=== PATIENT | male | born 1945 | race Caucasian/White ===

== ENCOUNTER 2018-04-16 15:50 | Emergency (ER) | payer OTHER, BC ==
--- NOTE | 2018-04-16 16:29 | EDPHY ---
H & P Time Seen by Provider: 04/16/18 16:29 HPI/ROS: CHIEF COMPLAINT: Right inguinal hernia,"I think it's incarcerated HISTORY OF PRESENT ILLNESS: Patient has had intermittent symptoms for about 3 years. He got sick last night had multiple episodes of vomiting, his hernia is usually been in soft and able to be easily reduced but since 10:00 a.m. He can' t get it reduced any has increasing pain and swelling. No further vomiting, no abdominal distension, no fever or chills. Symptoms moderate now. Worse with palpation. REVIEW OF SYSTEMS: Eye: no change in vision ENT: no sore throat Cardiac: no chest pain or syncope Pulmonary: no cough or SOB Abdomen: HPI Musculoskeletal: no back pain Skin: no rash Neuro: no headache Constitutional: no fever : no urinary symptoms A comprehensive 10 point review of systems is otherwise negative aside from elements mentioned in the history of present illness. PAST MEDICAL HISTORY: Anxiety, and inguinal hernia Social history: Drove himself here General Appearance: Alert and conversant, cooperative. Moderately uncomfortable. Eyes: No scleral icterus. ENT, Mouth: Normal mucous membranes. Respiratory: Normal respiratory effort, breath sounds equal, lungs are clear to auscultation. Cardiovascular: Regular rate and rhythm. Gastrointestinal: Abdomen is soft and non tender. No rebound or guarding. He has a right inguinal hernia which is not hard or firm but is very tender to palpation. Otherwise normal scrotum. Neurological: Alert, face symmetric, normal motor and sensory in extremities. Ambulatory. Skin: Warm and dry, no rashes. Musculoskeletal: No peripheral edema. Psychiatric: Not agitated. Emergency Department course/MDM: Patient had ice pack placed, I put him in Trendelenburg, I spent 10 min trying to manually reduce it without success. Fentanyl 100 mcg IV, Zofran 4 mg IV, consultation with Dr. Edwards at 4:48 p.m.. Grace able to reduce the hernia, recommends discharge with follow-up Dr. Sandoval in the office. Smoking Status: Never smoked Constitutional: Initial Vital Signs Temperature (C) 36.8 C 04/16/18 15:59 Heart Rate 84 04/16/18 15:59 Respiratory Rate 18 04/16/18 15:59 Blood Pressure 151/91 H 04/16/18 15:59 O2 Sat (%) 99 04/16/18 15:59 O2 Delivery Mode Room Air Allergies/Adverse Reactions: No Known Allergies Allergy (Unverified 04/16/18 15:59) Home Medications: Medication Instructions Recorded NK [No Known Home Meds] 04/16/18 Medical Decision Making Differential Diagnosis: Differential considered including but not limited to scrotal mass, incarcerated hernia, strangulated hernia, bowel obstruction, appendicitis. - Data Points Medications Given: Discontinued Medications Fentanyl (Sublimaze) 100 mcg IVP EDNOW ONE Stop: 04/16/18 16:47 Last Admin: 04/16/18 16:51 Dose: 100 mcg Sodium Chloride (Ns) 1,000 mls @ 0 mls/hr IV EDNOW ONE; Wide Open PRN Reason: Protocol Stop: 04/16/18 16:48 Last Admin: 04/16/18 16:53 Dose: 1,000 mls Ondansetron HCl (Zofran) 4 mg IVP EDNOW ONE Stop: 04/16/18 16:47 Last Admin: 04/16/18 16:53 Dose: 4 mg Departure - Departure Disposition: Home, Routine, Self-Care Clinical Impression: Right inguinal hernia Condition: Good Instructions: Inguinal Hernia (ED) Referrals: Toy Carter MD [Primary Care Provider] - As per Instructions Abhishek Sandoval MD [Medical Doctor] - As per Instructions (call Dr. Sandoval to followup within the next week to discuss definitive surgical management)
[2018-04-16] MEDS ORDERED: fentaNYL 100 MCG/2 ML INJ IVP ONE (16:46)
[2018-04-16] MEDS ORDERED: ONDANSETRON 4 MG/2 ML VIAL IVP ONE (16:46)
[2018-04-16] MEDS ORDERED: NS 1,000 ML IV ONE (16:47)
[2018-04-16 18:36] VITALS: BP 163/80
== END 2018-04-16 18:37 | disposition home or self-care (01) ==
DX: K40.90 Unilateral inguinal hernia, without obstruction or gangrene, not specified as recurrent (principal); E86.9 Volume depletion, unspecified
CPT/HCPCS: 96361; 96374; 96375; 99284; J2405; J3010

== ENCOUNTER 2018-05-02 09:32 | Observation (INO) | payer OTHER, BC ==
--- NOTE | 2018-05-02 09:21 | PDANEPAE ---
ANE Past Medical History - Cardiovascular History Hx Hypertension: No Hx Arrhythmias: No Hx Chest Pain: No Hx Coronary Artery / Peripheral Vascular Disease: No Hx CHF / Valvular Disease: No Hx Palpitations: No - Pulmonary History Hx COPD: No Hx Asthma/Reactive Airway Disease: Yes Hx Recent Upper Respiratory Infection: No Hx Oxygen in Use at Home: No Hx Sleep Apnea: No Sleep Apnea Screening Result - Last Documented: Negative Pulmonary History Comment: ASTHMA CHILD- NO ISSUES CURRENTLY - Neurologic History Hx Cerebrovascular Accident: No Hx Seizures: No Hx Dementia: No - Endocrine History Hx Diabetes: No Hypothyroid: No Hyperthyroid: No Obesity: no - Renal History Hx Renal Disorders: Yes Renal History Comment: BPH. DIFFICULTY URINATING AT TIMES - Neurological & Psychiatric Hx Hx Neurological and Psychiatric Disorders: Yes Neurological / Psychiatric History Comment: ANXIETY. DEPRESSION WHEN HE WAS YOUNGER. INSOMNIA - Cancer History Hx Cancer: Yes Cancer History Comment: SKIN CA - Congenital Disorder History Hx Congenital Disorders: No - GI History GERD: no Hx Gastrointestinal Disorders: No - Other Health History Other Health History: WEARS GLASSES - Chronic Pain History Chronic Pain: No - Surgical History Prior Surgeries: TONSILLECTOMY CHILD. REMOVAL OF 3RD TOOTH CHILD ANE Review of Systems Review of Systems: - Exercise capacity Exercise capacity: >=4 METS METS (RN): 4 METS ANE Patient History - Allergies Allergies/Adverse Reactions: No Known Allergies Allergy (Verified 04/30/18 16:48) - Home Medications Home Medications: NK [No Known Home Meds] 04/16/18 [Last Taken Unknown] - Anes Hx Anes Hx: no prior problems - Smoking Hx Smoking Status: Never smoked Marijuana use: No - Alcohol Use Alcohol Use: Rarely - Family Anes Hx Family Anes Hx: neg - N/A Family Hx Anesthesia Complications: NONE ANE Labs/Vital Signs - Vital Signs Height: 180.34 cm Weight: 61.235 kg ANE Physical Exam - Airway Neck exam: FROM Mallampati Score: Class 1 Mouth exam: normal dental/mouth exam - Pulmonary Pulmonary: no respiratory distress, no rales or rhonchi, clear to auscultation - Cardiovascular Cardiovascular: regular rate and rhythym, no murmur, rub, or gallop - ASA Status ASA Status: II ANE Anesthesia Plan Anesthesia Plan: general endotracheal anesthesia Total IV Anesthesia: No
[2018-05-02] MEDS ORDERED: BUPIVACAINE/EPI 0.5% 30 ML SDV ONE (09:34)
[2018-05-02] MEDS ORDERED: LR 1,000 ML IV ONE (10:00)
[2018-05-02] MEDS ORDERED: ceFAZolin 2 GM/DEXTROSE 100 ML IV ONE (10:00)
[2018-05-02] MEDS ORDERED: LIDOCAINE 1% 2 ML INJ ID PRN (10:00)
--- NOTE | 2018-05-02 10:20 | PDHPUP ---
History & Physical Update H&P update statement: This history and physical update is based on an assessment of the patient which was completed after admission or registration (within 24 hours), but prior to the surgery/procedure. H&P update: H&P reviewed & patient examined, no change in patient's condition since H&P completed
[2018-05-02] MEDS ORDERED: MIDAZOLAM 2 MG/2 ML VIAL ONE (10:50)
[2018-05-02] MEDS ORDERED: PROPOFOL 200 MG/20 ML VIAL ONE (10:56)
[2018-05-02] MEDS ORDERED: REMIFENTANIL HCL 1 MG VIAL ONE (10:56)
[2018-05-02] MEDS ORDERED: PROPOFOL/EMULSION 500 MG/50 ML BOTTLE IV ONE (10:56)
[2018-05-02] MEDS ORDERED: fentaNYL 100 MCG/2 ML INJ ONE (10:56)
[2018-05-02] MEDS ORDERED: LIDOCAINE 2% 5 ML SDV ONE (10:57)
[2018-05-02] MEDS ORDERED: DEXAMETHASONE 4 MG/ML VIAL ONE (10:57)
[2018-05-02] MEDS ORDERED: ONDANSETRON 4 MG/2 ML VIAL ONE (10:57)
[2018-05-02] MEDS ORDERED: ROCURONIUM 50 MG/5 ML VIAL ONE (10:57)
[2018-05-02] MEDS ORDERED: MIDAZOLAM 2 MG/2 ML VIAL IVP ONE (11:34)
[2018-05-02] MEDS ORDERED: PROMETHAZINE HCL 25 MG/ML INJ IVP PRN (11:35)
[2018-05-02] MEDS ORDERED: ACETAMINOPHEN 500 MG TAB PO PRN (11:35)
[2018-05-02] MEDS ORDERED: fentaNYL 100 MCG/2 ML INJ IVP PRN (11:35)
[2018-05-02] MEDS ORDERED: LR 500 ML IV PRN (11:35)
[2018-05-02] MEDS ORDERED: HYDROCODONE/APAP 5/325 TAB PO PRN (11:35)
[2018-05-02] MEDS ORDERED: NALOXONE HCL 0.4 MG/ML INJ IVP PRN (11:35)
[2018-05-02] MEDS ORDERED: ONDANSETRON 4 MG/2 ML VIAL IVP PRN ×2 (11:35→13:08)
[2018-05-02] MEDS ORDERED: PHENYLEPHRINE HCL 100 MCG/ML SYR IVP PRN (11:35)
[2018-05-02] MEDS ORDERED: oxyCODONE IR 5 MG TAB PO PRN ×2 (11:35→13:08)
[2018-05-02] MEDS ORDERED: KETOROLAC 30 MG/1 ML SDV ONE (12:36)
[2018-05-02] MEDS ORDERED: NEOSTIGMINE METHYLSULFATE 5 MG/5 ML SYR ONE (12:36)
[2018-05-02] MEDS ORDERED: GLYCOPYRROLATE 0.2 MG/1 ML VIAL ONE ×2 (12:36)
--- NOTE | 2018-05-02 13:07 | POSTOPPROG ---
Post Op Note Date of Operation: 05/02/18 Surgeon: Abhishek Sandoval [employer] Engineer: JARRED Yousif Anesthesiologist: Jeannine Anesthesia: GET(General Endotracheal) Pre-op Diagnosis: bilateral inguinal hernias Post-op Diagnosis: same Procedure: Robotic assisted BIH c mesh Findings: large R direct, mod L indirect, direct and femoral hernias Inf/Abcess present in the surg proc area at time of surgery?: No EBL: Minimal
[2018-05-02] MEDS ORDERED: ACETAMINOPHEN 325 MG TAB PO PRN (13:08)
[2018-05-02] MEDS ORDERED: HYDROmorphONE/DILAUDID 1 MG/ML INJ IVP PRN (13:08)
[2018-05-02] MEDS ORDERED: LABETALOL HCL 5 MG/ML 20 ML MDV ONE (13:36)
[2018-05-02] MEDS ORDERED: LABETALOL HCL 5 MG/ML 20 ML MDV IVP ONE (14:00)
--- NOTE | 2018-05-02 14:34 | GOP ---
DATE OF OPERATION: 05/02/2018 SURGEON: Abhishek Sandoval MD [employer] DIRECTOR: Randi Doyle CFA. ANESTHESIA: General endotracheal. ANESTHESIOLOGIST: Dr. Paez. PREOPERATIVE DIAGNOSIS: Bilateral inguinal hernias. POSTOPERATIVE DIAGNOSIS: Right-sided indirect hernia and left-sided indirect, direct, and femoral he rnias. PROCEDURE PERFORMED: Robotic assisted laparoscopic bilateral inguinal hernia repair with mesh. FINDINGS: Large direct hernia on the right side. Moderate-sized indirect, direct, and femoral herni as on the left side. Both repaired with Bard 3D Light large-size mesh. SPECIMENS: None. ESTIMATED BLOOD LOSS: 5 cc. DESCRIPTION OF PROCEDURE: The patient was greeted in the preoperative suite. Once again, risks, camila efits, and alternatives were discussed. Consent was signed. He was brought back to the operative logan ite, placed on the OR table in supine position. After all anesthesia machines including SCDs were on and functioning, a World Health Organization time-out was performed. After successful induction of general anesthesia, the patient's abdomen was prepped and draped in typical sterile fashion. I comme nced the procedure by making a supraumbilical cutdown through which the Veress needle was passed. I achieved pneumoperitoneum to 15 mmHg, which was well tolerated by the patient. I then inserted an 8 mm trocar through this site. Once successfully in the abdomen I placed 2 additional 8 mm trocars, 1 in the right and 1 in the left upper quadrant, both under direct visualization. The patient was then placed in gentle Trendelenburg position and the robot was docked. I turned my attention first towar d the patient's right side. I scored a peritoneal flap adjacent to the ASIS and carried this just me dial to the pubic tubercle. I then carried this flap down to Syed's ligament medially and the visc eral sac laterally. I skeletonized the cord structures. There was no indirect defect. There was a large size direct defect. This was successfully reduced. After successful reduction I interrogated the indirect and femoral spaces and found no other significant findings. A piece of Bard 3D Light la rge-size mesh was then brought into the operative field. It was tacked to Syed's ligament as well as medially on the tissue around the defect. Once successfully tacked the peritoneum was then run wi th a running 2 0 V-Loc suture. In the same fashion, I turned my attention toward the left side. A p eritoneal flap was created in the same fashion on this side. However, the patient not only had a dir ect defect, but an indirect and a small femoral defect. All of these were successfully reduced. The cord structures were skeletonized all the way down to the visceral sac. Once no other significant f indings were identified, a left-side piece of Bard 3D Light mesh was brought into the field. It was attached to Syed's ligament as well as the medial portion of the direct defect and allowed to lay i n the preperitoneal space without any kinks. The peritoneal was closed in the same fashion. I then inspected the abdomen and found no other significant findings. I evacuated pneumoperitoneum. I clos ed the port sites with Monocryl, over which Dermabond was placed. The patient was then extubated in the operative suite and taken to the PACU in satisfactory condition. DRAINS: None. COUNTS: All counts were reported as correct x2. /[id number]/MODL
[2018-05-02] MEDS: D5W 1/2 NS W/ 20 KCl/L 1,000 ML IV SCH (15:02)
[2018-05-02] MEDS: IBUPROFEN 600 MG TAB PO SCH ×2 (15:13→21:13)
--- NOTE | 2018-05-02 16:21 | POSTANESTH ---
Post Anesthetic Evaluation Cardiovascular Status: Tx Hyper/Hypo-tension Respiratory Status: Normal, Stable Level of Consciousness/Mental Status: Can Participate in Eval Pain Control: Adequate, Prn Tx Ordered Nausea/Vomiting Control: Adequate, Prn Tx Ordered Complications Possibly Related to Anesthesia: None Noted
[2018-05-03] MEDS: D5W 1/2 NS W/ 20 KCl/L 1,000 ML IV SCH (03:07)
[2018-05-03] MEDS: IBUPROFEN 600 MG TAB PO SCH ×2 (05:31→13:50)
[2018-05-03 07:39] VITALS: BP 119/62
--- NOTE | 2018-05-03 13:01 | SOAPPROG ---
SOAP Progress Note Assessment/Plan: Assessment: DOING WELL STATUS POST LAP HERNIA REPAIR/INCISIONS CLEAN DRY AND INTACT/AFEBRILE /VOIDING WELL/POSITIVE FLATUS/EATING OKAY Plan: HOME TODAY/FOLLOW-UP WITH DR. VALENCIA VII TO 10 DAYS 05/03/18 12:59 Objective: Vital Signs Temp Pulse Resp BP Pulse Ox 37.0 C 60 14 119/62 96 05/03/18 07:37 05/03/18 07:37 05/03/18 07:37 05/03/18 07:37 05/03/18 07:37 05/02/18 05/03/18 05/04/18 05:59 05:59 05:59 Intake Total 3575 Output Total 785 350 Balance 2790 -350 ICD10 Worksheet Patient Problems: Problems Problem Status Onset Inguinal hernia Acute - ICD10 Problem Qualifiers (1) Inguinal hernia
--- NOTE | 2018-05-03 14:26 | ASMTLACE ---
CHUYITA Length of stay for Answers: 1 day current admission Acuity / Level of Answers: No Care: Did the patient have an inpatient admission? Comorbidities - select Answers: Other Notes: Inguinal hernias all that apply # of Emergency department Answers: 1-2 visits in the last 6 months Social determinants Answers: Mental health diagnosis (anxiety, depression, pers onality disorders, etc.) Score: 6 Date Signed: 05/03/2018 02:26 PM Electronically Signed By:Ivon Rivera RN
--- NOTE | 2018-05-03 15:26 | ASDISCHSUM ---
Discharge Information Plan Status:Home with No Needs Medically Cleared to Leave:05/03/2018 Discharge Date:05/03/2018 02:10 PM CM D/C Disposition:Home, Routine, Self-Care ADT D/C Disposition:Home, Routine, Self-Care Projected Discharge Date:05/03/2018 02:10 PM Transportation at D/C:Friend Discharge Delay Reason: Follow-Up Date:05/03/2018 02:10 PM Discharge Slot:2 - 12:01 pm - 18:00 pm Final Diagnosis:Bilateral inguinal hernias, s/p laproscopic hernia repairs, anxiety Placement Information Patient Contact Information Contact Name:BRISA Relationship:Friend Address:[address] City:[place] Alternate Phone: State/Zip Code:[place] [address] Email: Financial Information Financial Class:Medicare Primary Plan Desc:MEDICARE OUTPATIENT Primary Plan Number:[id number] Secondary Plan Desc: OUT OF STATE [facility] Secondary Plan Number:[id number] Assessment Information LACE LACE Length of stay for Answers: 1 day current admission Acuity / Level of Answers: No Care: Did the patient have an inpatient admission? Comorbidities - select Answers: Other Notes: Inguinal hernias all that apply # of Emergency department Answers: 1-2 visits in the last 6 months Social determinants Answers: Mental health diagnosis (anxiety, depression, pers onality disorders, etc.) Score: 6 Date Signed: 05/03/2018 02:26 PM Electronically Signed By:Ivon Rivera RN CELESTE LOVELACE Progress Note CM Note CM Note Notes: Reviewed chart. Pt presented to the Emergency Department for a possible incarcerated hernia with c/o nausea, vomiting and pain. Pt is s/p a laproscopic hernia repair. History includes bilateral inguinal hernias, anxiety. Pt lives alone in [place]. Asked to see pt by DARIA Grant for assistance with pt's anxiety. Met with pt to discuss needs. Pt reports "ongoing generalized anxiety." Pt states the anxiety is starting to interfere with his daily life and has progressively become worse. The pt has been to see his PCP, who referred him to a Psychiatrist. Pt believes he has a PTSD component to his anxiety, but did not elaborate on the details. The pt states his mother from poorly managed anxiety (with lots of medications). Pt states he would prefer not to take any medications for treatment, if possible. Pt provided with an anxiety information packet. Resources given for community programs, clinics, crisis centers and support groups. Pt also provided handouts on coping strategies and general anxiety management. Encouraged pt to call Medicare for a list of therapists in the area covered by his plan. Pt requested information on Dr. Jaxon Ogden in [place], [place]. Pt curious about procedure for a Stellate Ganglion Block. Information printed from web at pt request (pt does not have internet at home). Support provided, questions answered. Pt to discharge home independently. IM/CORBETT forms signed. Pt to follow up as directed. CM available for any further issues or concerns. Discharge Plan: Home Independent Date Signed: 05/03/2018 03:19 PM Electronically Signed By:Ivon Rivera RN Intervention Information Intervention Type:*IM-Signed Date of Service:05/03/2018 02:26 PM Patient Type:Observation Staff Member:DARIA Rivera Taylor Hours: Discipline: Severity: Comment: Intervention Type:*CORBETT-Signed Date of Service:05/03/2018 02:26 PM Patient Type:Observation Staff Member:DARIA Rivera Taylor Hours: Discipline: Severity: Comment:
--- NOTE | 2018-05-08 16:39 | PDDCSUM ---
Discharge Summary Discharge Summary: DISCHARGE SUMMARY Date of Admission May 02 Date of Discharge May 03 DISCHARGE DIAGNOSES -bilateral inguinal hernias HOSPITAL COURSE The patient was taken to the operating room for uneventful robotic assisted bilateral inguinal hernia repair with mesh. Given his age, comorbidities and need for oxygen. He was monitored overnight. He was subsequently sent home in stable condition on the following morning. DISCHARGE MEDICATIONS No new DISPOSITION Home FOLLOW UP Follow up with me in the office in 10-14 days for a general post-operative visit
== END 2018-05-03 14:10 | disposition home or self-care (01) ==
LOC: FSGY 09:32 → F3E 13:08
PROVIDERS: ADMIT Surgery; ATTEND Surgery
DX: K40.20 Bilateral inguinal hernia, without obstruction or gangrene, not specified as recurrent (principal); F41.1 Generalized anxiety disorder; N40.1 Benign prostatic hyperplasia with lower urinary tract symptoms; Z23 Encounter for immunization
CPT/HCPCS: 49650; 90686; C1781; G0008; J0690; J1100; J1885; J2250; J2405; J2704; J2710; J3010